=== PATIENT | female | born 1945 | race Caucasian/White ===

== ENCOUNTER 2017-04-24 10:31 | Inpatient (IN) | payer MEDICARE, MEDICAID ==
[~2017-04-24] VITALS: Ht 144.8 cm; Wt 70.9 kg
[~2017-04-24 10:31] MED LIST: ALEN70TA48 PO; CALC-506; DOCU100P; MULT-1085 PO; OMEP-84 PO; PRIM250T48 CORPAK; STE5T PO
[2017-04-24 11:32] LABS: BASOPHILS % (AUTO) 0.4 % (0-1); EOSINOPHILS # (AUTO) 0.1 X10'3 (0-0.9); EOSINOPHILS % (AUTO) 1.8 % (0-6); HEMATOCRIT 43.9 % (35.0-45.0); LYMPHOCYTES # (AUTO) 1.1 X10'3 (1.1-4.8); LYMPHOCYTES % (AUTO) 15.2 % (21-51); MEAN CORPUSCULAR HEMOGLOBIN 31.8 PG (27.0-31.0); MEAN CORPUSCULAR HGB CONC 34.2 % (33.0-36.5); MEAN CORPUSCULAR VOLUME 92.9 FL (78-98); MEAN PLATELET VOLUME 8.4 FL (7.4-10.4); MONOCYTES # (AUTO) 0.7 X10'3 (0-0.9); NEUTROPHILS # (AUTO) 5.1 X10'3 (1.8-7.7); NEUTROPHILS % (AUTO) 72.6 % (42-75); PLATELET COUNT 198 X10'3 (140-440); RED BLOOD COUNT 4.73 X10'6 (4.20-5.60); RED CELL DISTRIBUTION WIDTH 13.9 % (11.5-14.5)
[2017-04-24 11:41] LABS: PARTIAL THROMBOPLASTIN TIME 25 SECONDS (22-32); PROTHROMBIN TIME 10.5 SECONDS (9.0-12.0)
[2017-04-24 11:49] LABS: ALANINE AMINOTRANSFERASE 31 U/L (12-78); ALBUMIN 3.7 G/DL (3.4-5.0); ALBUMIN/GLOBULIN RATIO 0.8 (1.1-1.5); ALKALINE PHOSPHATASE 79 IU/L (46-116); ANION GAP 10 (8-16); ASPARTATE AMINO TRANSFERASE 27 U/L (10-37); BILIRUBIN,TOTAL 0.3 MG/DL (0.1-1.0); BLOOD UREA NITROGEN 22 MG/DL (7-18); CALCIUM 9.2 MG/DL (8.5-10.1); CHLORIDE 105 MMOL/L (99-107); GLUCOSE 135 MG/DL (70-104); POTASSIUM 3.9 MMOL/L (3.5-5.1); SODIUM 147 MMOL/L (135-145); TOTAL CARBON DIOXIDE 32.4 MMOL/L (24-32); TOTAL PROTEIN 8.3 G/DL (6.4-8.2); TROPONIN I < 0.04 NG/ML (0.0-0.05); eGFR 55 ML/MIN
[2017-04-24] MEDS ORDERED: non-formulary drug (Alendronate Sodium* (Fosamax*) 70 MG) PO SCH (13:15)
[2017-04-24] MEDS ORDERED: dextrose 50%-water 50ml dispensing syringe IV PRN ×2 (13:45)
[2017-04-24] MEDS ORDERED: MESSAGE TO PHARMACY PO ONE (13:45)
[2017-04-24] MEDS ORDERED: pantoprazole 40 MG vial IV ONE (13:45)
[2017-04-24] MEDS ORDERED: glucagon, human recombinant 1mg kit SUBCUT PRN (13:45)
[2017-04-24] MEDS ORDERED: dextrose ORAL solution 15 GM/59 ML bottle PO PRN ×2 (13:45)
[2017-04-24] MEDS ORDERED: insulin Lispro (HumaLOG) vial - multi-dose SQ SCH (13:45)
[2017-04-24 13:57] LABS: HEMOGLOBIN A1C 5.6 % (4.5-6.2)
[2017-04-24] MEDS: normal saline 1000ml 1,000 ML IV SCH (14:22)
[2017-04-24 16:07] VITALS: BP 138/67
[2017-04-24 16:48] LABS: CLARITY,URINE Cloudy (Clear); COLOR,URINE Yellow (Yellow); GLUCOSE, URINE Negative (Neg); KETONES,URINE 15 mg/dl (Neg); LEUKOCYTE ESTERASE ,URINE Negative (Neg); NITRITES, URINE Negative (Neg); OCCULT BLOOD,URINE Negative (Neg); PROTEIN,URINE Negative (Neg)
[2017-04-24 16:49] LABS: UA COLLECTION TYPE STRAIGHT CATH
[2017-04-24 16:55] LABS: AMORPHOUS PHOSPHATES 3+; BACTERIA,URINE NONE SEEN /HPF (Neg); HYALINE CASTS 0-3 /LPF (NEGATIVE); RBC,URINE 0-2 /HPF (0-2); SQUAMOUS EPITHELIAL CELL,UR NONE SEEN /LPF (FEW); WBC,URINE 0-4 /HPF (0-4)
[2017-04-24] MEDS ORDERED: aspirin 325mg tablet PO ONE (18:45)
[2017-04-24] MEDS: primidone 250mg tablet PO SCH (19:42)
[2017-04-24] MEDS ORDERED: bisacodyl 10mg suppository rectal RC PRN (19:45)
[2017-04-24] MEDS ORDERED: magnesium hydroxide 30ml (MOM) UD suspension PO ONE (19:45)
[2017-04-24] MEDS ORDERED: primidone 250mg tablet CORPAK SCH (20:00)
[2017-04-24 20:55] VITALS: BP 122/63
[2017-04-24] MEDS ORDERED: insulin glargine (Lantus) pen - multi-dose SQ SCH (21:00)
[2017-04-25] VITALS: BP 121/64
[2017-04-25] MEDS: normal saline 1000ml 1,000 ML IV SCH (03:31)
[2017-04-25 04:00] VITALS: BP 130/70
[2017-04-25] MEDS ORDERED: pantoprazole 40mg Tablet.DR PO SCH (07:30)
[2017-04-25 07:39] LABS: CHOL/HDL RATIO 3.1 (0.00-4.99); CHOLESTEROL 161 MG/DL (0-200); HDL CHOLESTEROL 52 MG/DL (35-60); LDL CHOLESTEROL 82 MG/DL (50-100); TRIGLYCERIDES 81 MG/DL (20-135)
[2017-04-25] MEDS: primidone 250mg tablet PO SCH (07:39)
[2017-04-25 08:00] VITALS: BP 133/69
[2017-04-25] MEDS ORDERED: aspirin 325mg tablet PO SCH (08:30)
[2017-04-25 12:00] VITALS: BP 127/68
[2017-04-25 12:47] LABS: BASOPHILS % (AUTO) 0.2 % (0-1); EOSINOPHILS # (AUTO) 0.1 X10'3 (0-0.9); EOSINOPHILS % (AUTO) 1.7 % (0-6); HEMATOCRIT 42.4 % (35.0-45.0); HEMOGLOBIN 14.6 g/dl (12.0-16.0); LYMPHOCYTES # (AUTO) 0.8 X10'3 (1.1-4.8); LYMPHOCYTES % (AUTO) 15.1 % (21-51); MEAN CORPUSCULAR HGB CONC 34.3 % (33.0-36.5); MEAN CORPUSCULAR VOLUME 93.1 FL (78-98); MEAN PLATELET VOLUME 8.5 FL (7.4-10.4); MONOCYTES # (AUTO) 0.4 X10'3 (0-0.9); MONOCYTES % (AUTO) 7.6 % (2-12); NEUTROPHILS # (AUTO) 3.9 X10'3 (1.8-7.7); NEUTROPHILS % (AUTO) 75.4 % (42-75); PLATELET COUNT 189 X10'3 (140-440); RED BLOOD COUNT 4.55 X10'6 (4.20-5.60); RED CELL DISTRIBUTION WIDTH 14.2 % (11.5-14.5); WHITE BLOOD COUNT 5.2 X10'3 (4.5-11.0)
[2017-04-25 12:58] LABS: ALBUMIN 3.2 G/DL (3.4-5.0); ANION GAP 7 (8-16); BLOOD UREA NITROGEN 12 MG/DL (7-18); BUN/CREATININE RATIO 17.1 (6.6-38.0); CALCIUM 8.2 MG/DL (8.5-10.1); CHLORIDE 108 MMOL/L (99-107); GLUCOSE 127 MG/DL (70-104); POTASSIUM 4.3 MMOL/L (3.5-5.1); SODIUM 143 MMOL/L (135-145); TOTAL CARBON DIOXIDE 28.1 MMOL/L (24-32); eGFR 83 ML/MIN
[2017-04-25 14:00] VITALS: BP 126/74
[2017-04-25] MEDS ORDERED: ASPI-10 PO (17:05)
== END 2017-04-25 17:50 | disposition home or self-care (01) | DRG 65 ==
LOC: ER 10:32 → ED HOLD 12:44 → ORTHO 4S 16:08
PROVIDERS: ADMIT Internal Medicine; ATTEND Emergency Medicine
DX: I63.9 Cerebral infarction, unspecified (principal); E87.0 Hyperosmolality and hypernatremia; F03.90 Unspecified dementia, unspecified severity, without behavioral disturbance, psychotic disturbance, mood disturbance, and anxiety; F20.9 Schizophrenia, unspecified; R29.810 Facial weakness; K21.9 Gastro-esophageal reflux disease without esophagitis; F29 Unspecified psychosis not due to a substance or known physiological condition; F41.9 Anxiety disorder, unspecified; R73.9 Hyperglycemia, unspecified; Z90.49 Acquired absence of other specified parts of digestive tract; Z90.710 Acquired absence of both cervix and uterus; Z79.899 Other long term (current) drug therapy
CPT/HCPCS: 36415; 70450; 70544; 70551; 71045; 80048; 80053; 80061; 81001; 82948; 83036; 84484; 85025; 85610; 85730; 87070; 93005; 93306; 93880; 97162; 97530; 99285; A4353; C9113; J1815; J7030